=== PATIENT | female | born 1965 | race Caucasian/White ===

== ENCOUNTER 2019-05-20 00:22 | Emergency (ER) | payer OTHER ==
[~2019-05-20] VITALS: Ht 162.6 cm; Wt 69.4 kg
[2019-05-20] MEDS ORDERED: MORPHINE SULFATE 2 MG/1 ML DISP.SYRIN IV ONE (00:45)
[2019-05-20] MEDS ORDERED: PANTOPRAZOLE SODIUM 40 MG VIAL IV ONE (00:45)
[2019-05-20] MEDS ORDERED: IV NORMAL SALINE 1000 ML BAG IV ONE (00:45)
[2019-05-20] MEDS ORDERED: ONDANSETRON 4 MG/2 ML VIAL IV ONE (00:45)
[2019-05-20] MEDS ORDERED: PANTOPRAZOLE SODIUM 40 MG VIAL ONE ×2 (00:52→00:54)
[2019-05-20] MEDS ORDERED: ONDANSETRON 4 MG/2 ML VIAL ONE (00:52)
[2019-05-20] MEDS ORDERED: MORPHINE SULFATE 2 MG/1 ML DISP.SYRIN ONE (00:53)
[2019-05-20 01:10] LABS: BASOPHILS % (AUTO) 0.3 % (0.0-2.0); HEMATOCRIT 40.1 % (31.2-41.9); HEMOGLOBIN 13.4 g/dL (10.9-14.3); MEAN CORPUSCULAR HEMOGLOBIN 30.2 uug (24.7-32.8); MEAN CORPUSCULAR HGB CONC 34 g/dL (32.3-35.6); MEAN CORPUSCULAR VOLUME 90.3 fL (75.5-95.3); MONOCYTES # (AUTO) 0.4 K/uL (2.0-10.0); NEUTROPHILS # (AUTO) 10.5 K/uL (1.8-8.9); NEUTROPHILS % (AUTO) 88.7 % (38.5-71.5); PLATELET COUNT (AUTO) 257 K/uL (179-408); RED BLOOD CELL COUNT(AUTO) 4.44 MIL/uL (3.63-4.92); WHITE BLOOD COUNT (AUTO) 11.9 K/uL (3.8-11.8)
--- NOTE | 2019-05-20 01:16 | NUR ---
pt recieved awake alert and oriented x4 . pt crying because of abdomenal pain .pt medicated with morphine ,protonix and zofran all iv . Ekg done.
[2019-05-20 01:28] LABS: POTASSIUM 4.1 mmol/L (3.5-5.1)
[2019-05-20 01:29] LABS: BILIRUBIN,TOTAL 0.4 mg/dL (0.1-1.0); CREATININE 0.8 mg/dL (0.6-1.3)
[2019-05-20 01:30] LABS: BILIRUBIN,DIRECT 0.1 mg/dL (0.0-0.2)
[2019-05-20 01:31] LABS: TOTAL PROTEIN, SERUM 7.7 g/dL (6.4-8.2)
[2019-05-20] MEDS ORDERED: MAG HYDROX/AL HYDROX/SIMETH 30 ML LIQUID UDC ONE (01:42)
[2019-05-20] MEDS ORDERED: MAG HYDROX/AL HYDROX/SIMETH 30 ML LIQUID UDC PO ONE (01:45)
--- NOTE | 2019-05-20 02:46 | NUR ---
Patient discharged to home in stable conditon. Written and verbal after care instructions given. Patient verbalizes understanding of instructions.
[2019-05-20 02:51] VITALS: BP 144/94
== END 2019-05-20 02:54 | disposition home or self-care (01) ==
LOC: ER 00:32
DX: R10.13 Epigastric pain (principal); R11.2 Nausea with vomiting, unspecified; M79.604 Pain in right leg; F32.9 Major depressive disorder, single episode, unspecified; E03.9 Hypothyroidism, unspecified
CPT/HCPCS: 36415; 71045; 80048; 80076; 83690; 84484; 85025; 93005; 96361; 96374; 96375; 99284; C9113; J2270; J2405; 70030-TC; A4663; J7030

== ENCOUNTER 2019-08-26 19:34 | Emergency (ER) | payer OTHER ==
[~2019-08-26] VITALS: Ht 162.6 cm; Wt 68.0 kg
--- NOTE | 2019-08-26 20:08 | NUR ---
Dr. Daniel at bedside for MSE
[2019-08-26] MEDS ORDERED: MORPHINE SULFATE 4 MG/1 ML DISP.SYRIN IM ONE (20:15)
[2019-08-26] MEDS ORDERED: KETOROLAC TROMETHAMINE 60 MG INJ IM ONE ×2 (20:25→20:30)
[2019-08-26] MEDS ORDERED: MORPHINE SULFATE 4 MG/1 ML DISP.SYRIN ONE ×2 (20:25→22:27)
[2019-08-26] MEDS ORDERED: KETAMINE HCL 500 MG/10 ML INJ IV ONE (21:15)
[2019-08-26] MEDS ORDERED: PROPOFOL 200 MG/20 ML BOTTLE IV ONE ×2 (21:15→23:00)
[2019-08-26] MEDS ORDERED: PROPOFOL 200 MG/20 ML BOTTLE ONE (21:28)
[2019-08-26] MEDS ORDERED: KETAMINE HCL 500 MG/10 ML INJ ONE (21:29)
--- NOTE | 2019-08-26 23:10 | NUR ---
IV removed. Catheter intact and site benign. Pressure and 4x4 gauze applied to site. No bleeding noted. Patient discharged to home in stable conditon. Written and verbal after care instructions given. Patient verbalizes understanding of instructions. Patient ambulatory with steady gait. Patient at bedside to drive patient home.
[2019-08-27 03:32] VITALS: BP 125/71
[2019-08-27] MEDS ORDERED: IV NS 1000 ML 1,000 ML IV ONE (04:15)
[2019-10-06] MEDS ORDERED: LEVO-103 PO (20:06)
[2019-10-06] MEDS ORDERED: IBUP-1955 PO (20:06)
== END 2019-08-26 23:15 | disposition home or self-care (01) ==
LOC: ER 19:34
DX: S52.502A Unspecified fracture of the lower end of left radius, initial encounter for closed fracture (principal); S52.612A Displaced fracture of left ulna styloid process, initial encounter for closed fracture; F32.9 Major depressive disorder, single episode, unspecified; E03.9 Hypothyroidism, unspecified; V00.131A Fall from skateboard, initial encounter; Y93.21 Activity, ice skating; Y92.89 Other specified places as the place of occurrence of the external cause; Y99.8 Other external cause status
CPT/HCPCS: 25605; 73100; 73110 ×2; 73130; 96372 ×2; 99152; 99285; J1885; J2270; J3490; A4663; G0500; J7030

== ENCOUNTER 2019-10-06 19:21 | Emergency (ER) | payer OTHER ==
[~2019-10-06] VITALS: Ht 162.6 cm; Wt 68.0 kg
--- NOTE | 2019-10-06 20:16 | NUR ---
Patient presents to ER with c/o of abdominal pain since today at 1600. Patient states she had nausea and vomitting and last bm was today at 1700, and it was small in size. Patient abdomen soft, no distended, noted tenderness to RLQ. Patient noted to have weakness on Lt hand, patient states she has a broken hand. Pending MD benz.
--- NOTE | 2019-10-06 20:37 | NUR ---
Dr. Kumar at bedside for MSE.
[2019-10-06] MEDS ORDERED: IV NORMAL SALINE 1000 ML BAG IV ONE (20:45)
[2019-10-06] MEDS ORDERED: KETOROLAC TROMETHAMINE 15 MG INJ IVP ONE (20:45)
[2019-10-06] MEDS ORDERED: METOCLOPRAMIDE HCL 10 MG/2 ML VIAL IV ONE (20:45)
[2019-10-06] MEDS ORDERED: KETOROLAC TROMETHAMINE 15 MG INJ ONE (20:49)
[2019-10-06] MEDS ORDERED: METOCLOPRAMIDE HCL 10 MG/2 ML VIAL ONE (20:49)
[2019-10-06 21:08] LABS: BASOPHILS # (AUTO) 0.1 K/uL (0.0-8.0); BASOPHILS % (AUTO) 0.4 % (0.0-2.0); EOSINOPHILS % (AUTO) 0.1 % (0.0-7.0); HEMATOCRIT 41.1 % (31.2-41.9); HEMOGLOBIN 14.1 g/dL (10.9-14.3); LYMPHOCYTES # (AUTO) 0.7 K/uL (20.0-40.0); LYMPHOCYTES % (AUTO) 5.2 % (20.5-51.5); MEAN CORPUSCULAR HEMOGLOBIN 30.3 uug (24.7-32.8); MEAN CORPUSCULAR HGB CONC 34 g/dL (32.3-35.6); MEAN CORPUSCULAR VOLUME 88.1 fL (75.5-95.3); MONOCYTES # (AUTO) 0.8 K/uL (2.0-10.0); MONOCYTES % (AUTO) 5.5 % (0.0-11.0); NEUTROPHILS # (AUTO) 12.6 K/uL (1.8-8.9); NEUTROPHILS % (AUTO) 88.8 % (38.5-71.5); PLATELET COUNT (AUTO) 299 K/uL (179-408); RED BLOOD CELL COUNT(AUTO) 4.67 MIL/uL (3.63-4.92); WHITE BLOOD COUNT (AUTO) 14.2 K/uL (3.8-11.8)
[2019-10-06 21:15] LABS: CREATININE 0.7 mg/dL (0.6-1.3)
[2019-10-06 21:21] LABS: BILIRUBIN,DIRECT 0.1 mg/dL (0.0-0.2); BILIRUBIN,TOTAL 0.7 mg/dL (0.2-1.0); TOTAL PROTEIN, SERUM 8.3 g/dL (6.4-8.2)
--- NOTE | 2019-10-06 21:21 | NUR ---
Pt provided urine sample, sent to lab.
[2019-10-06 21:26] LABS: *BILIRUBIN,URIN NEGATIVE (NEGATIVE); *CLARITY,URINE CLOUDY (CLEAR); *COLOR,URINE YELLOW (YELLOW); *KETONES,URINE 3+ (NEGATIVE); *UROBILINOGEN,URINE 0.2 E.U./dl (NORMAL); LEUKOCYTE ESTERASE ,URINE NEGATIVE (NEGATIVE); NITRITE, URINE NEGATIVE (NEGATIVE); PH,URINE 8.5 (5.0-8.0); UGLUCOSE NEGATIVE (NEGATIVE)
--- NOTE | 2019-10-06 21:27 | NUR ---
Xray at bedside.
[2019-10-06 21:35] LABS: *BLOOD, URINE TRACE (NEGATIVE); RBC,URINE 0-3 /HPF (0-3)
[2019-10-06 21:36] LABS: SQUAMOUS EPITHELIAL CELL,UR MODERATE /HPF (NONE SEEN); URINE AMORPHOUS PHOSPHATES MANY /HPF
[2019-10-06] MEDS ORDERED: IV NORMAL SALINE 250 ML IV ONE (21:38)
[2019-10-06] MEDS ORDERED: IOHEXOL 300MG/ML 100 ML INFUS..BTL ONE (21:38)
[2019-10-06] MEDS ORDERED: SWABABLE VALVE TRANSFER SET EA MC ONE (21:38)
--- NOTE | 2019-10-06 21:54 | NUR ---
Pt back to ER from CT.
--- NOTE | 2019-10-06 22:36 | NUR ---
Dr. Kumar speaking with Dr. Carlo Morgan.
[2019-10-06] MEDS ORDERED: PIPERACILLIN SODIUM/TAZOBACTAM 3.375 G in IV DEXTROSE 5% 50 ML IV ONE (22:45)
[2019-10-06] MEDS ORDERED: PIPERACILLIN/TAZOBACTAM/D5W 50 ML IV ONE (22:49)
--- NOTE | 2019-10-07 00:35 | NUR ---
Spoke with LINDA Causey for [place], states she recieved rm #[id number] at [facility]; and to call for nurse Daniel and number for report is [phone]. Accepting MD is KEMI Black.
--- NOTE | 2019-10-07 00:40 | NUR ---
Spoke with [facility], dispatch at [facility], provided ETA of 1 hour.
--- NOTE | 2019-10-07 00:48 | NUR ---
SBAR report given to Daniel MENDOZA at [facility]
--- NOTE | 2019-10-07 01:24 | NUR ---
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 Report given to Bari, patient left ER in stable condition in care of hair assistant.
== END 2019-10-07 01:27 | disposition short-term general hospital (02) ==
LOC: ER 19:24
DX: R10.13 Epigastric pain (principal); R11.2 Nausea with vomiting, unspecified; F32.9 Major depressive disorder, single episode, unspecified; E03.9 Hypothyroidism, unspecified; Z79.899 Other long term (current) drug therapy; Z79.1 Long term (current) use of non-steroidal anti-inflammatories (NSAID)
CPT/HCPCS: 36415; 71045; 74177; 76705; 76856; 80048; 80076; 81000; 81001; 83605; 83690; 84484; 84702; 85025; 85730; 87040 ×2; 93005; 96361; 96365; 96375; 99285; J1885; J2543; J2765; Q9967; 70030-TC; A4663; J7030; J7050